=== PATIENT | female | born 1975 | race Caucasian/White ===

== ENCOUNTER → 2016-07-02 | Outpatient (CLI) | payer BC ==
[~2016-07-02] MED LIST: ACET-1311 PO; CLC100 PO; FISH OI1 PO; IBUP-1050 PO; PRENATA2 PO
== END | disposition home or self-care (01) ==
LOC: C.PATHSPEC 18:04
PROVIDERS: ATTEND Plastic Surgery
DX: D23.5 Other benign neoplasm of skin of trunk (principal)

== ENCOUNTER → 2017-09-02 | Outpatient (CLI) | payer BC | END | disposition home or self-care (01) | LOC: C.PATHSPEC 12:35 | PROVIDERS: ATTEND Plastic Surgery | DX: L72.0 Epidermal cyst (principal) ==

== ENCOUNTER → 2017-12-16 | Outpatient (CLI) | payer BC | END | disposition home or self-care (01) | LOC: C.PATHSPEC 11:35 | PROVIDERS: ATTEND Plastic Surgery | DX: L72.0 Epidermal cyst (principal) ==